=== PATIENT | male | born 1995 | race American Indian/Alaskan Native ===

== ENCOUNTER 2017-11-08 18:49 | Emergency (ER) | payer SELFPAY ==
[2017-11-08 18:54] VITALS: RESP 16
--- NOTE | 2017-11-08 19:43 | ED PDOC ---
HPI: Psych/Substance Abuse Time Seen by Provider: 11/08/17 19:22 Chief Complaint (Nursing): Psychiatric Evaluation Chief Complaint (Provider): crisis eval History Per: Patient, EMS Additional Complaint(s): 22-year-old male presents for crisis evaluation. [place] the [place] and told police lieutenant that he was having a bad day. Patient is brought here via ambulance. Upon arrival he admits to smoking marijuana and K2 today. He denies suicidal or homicidal ideation. He denies use of alcohol or any other drugs. Patient denies suicidal or homicidal ideation. He is currently non-domiciled. PMD: none Past Medical History Reviewed: Historical Data, Nursing Documentation, Vital Signs Vital Signs: Last Vital Signs Temp 98.0 F 11/08/17 18:51 Pulse 97 H 11/08/17 18:51 Resp 16 11/08/17 18:51 BP 117/72 11/08/17 18:51 Pulse Ox 95 11/08/17 18:51 - Medical History PMH: No Chronic Diseases - Family History Family History: States: No Known Family Hx - Living Arrangements Living Arrangements: Other (non-domiciled) - Social History Current smoker - smoking cessation education provided: Yes Alcohol: None Drugs: Cannabis (and K2) - Allergies Allergies/Adverse Reactions: Allergies Allergy/AdvReac Type Severity Reaction Status Date / Time No Known Allergies Allergy Verified 11/08/17 18:51 Review of Systems ROS Statement: Except As Marked, All Systems Reviewed And Found Negative Psych: Positive for: Suicidal ideation (denies suicidal or homicidal ideation), Other (substance abuse, requesting crisis eval) Physical Exam - Reviewed Nursing Documentation Reviewed: Yes Vital Signs Reviewed: Yes - Physical Exam Appears: Positive for: Well, Non-toxic, No Acute Distress Skin: Negative for: Rash Eye Exam: Positive for: Normal appearance Cardiovascular/Chest: Positive for: Regular Rate, Rhythm Respiratory: Positive for: Normal Breath Sounds Back: Positive for: Normal Inspection Extremity: Positive for: Normal ROM Neurologic/Psych: Positive for: Other (alert, answers some questions appropriately) - ECG O2 Sat by Pulse Oximetry: 95 Pulse Ox Interpretation: Normal Medical Decision Making Medical Decision Makin22 year old here for crisis eval, admits to use of marijuan and K2 today Plan: Crisis eval CBC CMP BAL UDS UA Disposition - Clinical Impression Clinical Impression: Substance abuse - Patient ED Disposition Is Patient to be Admitted: Transfer of Care - Disposition Disposition: Transfer of Care Disposition Time: 19:44 Condition: FAIR Forms: [facility] (Nepali) Patient Signed Over To: Tanya Shoemaker Handoff Comments: Signed out pending sobriety, crisis eval and final disposition
--- NOTE | 2017-11-08 20:49 | ED PDOC ---
- ECG O2 Sat by Pulse Oximetry: 95 - Progress ED Course And Treament: Case endorsed to proposal lead writer from [facility] pending crisis eval Patient evaluated by psychiatric social worker; does not meet criteria for admission at this time as per Dr. Bates 20:50 Patient AAOx3. Ambulating steady gait. Tolerated PO. Stable for discharge Return precautions given Disposition - Clinical Impression Clinical Impression: Substance abuse - POA Present On Arrival: None - Disposition Referrals: [facility] [Outside] [facility] [Outside] Disposition: Routine/Home Disposition Time: 20:49 Condition: STABLE Instructions: Drug Abuse and Drug Addiction (DC)
[2017-11-09 04:44] VITALS: BP 101/78; PULSE 88; TEMP 97.7; O2SAT 98
== END 2017-11-08 22:11 | disposition home or self-care (01) ==
LOC: H.ER 18:49
DX: Z59.0 Homelessness (principal); F12.90 Cannabis use, unspecified, uncomplicated; Z00.8 Encounter for other general examination; F17.200 Nicotine dependence, unspecified, uncomplicated